=== PATIENT | female | born 1985 | race Two or more races ===

== ENCOUNTER 2024-05-11 09:04 | Outpatient (REF) | payer SELFPAY ==
[2024-05-11 11:38] LABS: MANUAL DIFF FLAG NO
[2024-05-11 11:39] LABS: Basophils Percent Auto 0.3 % (0-2); Eosinophils Absolute Auto 0.1 X10*3/uL (0.0-0.4); Eosinophils Percent Auto 0.8 % (0-4); Hematocrit 39.1 % (37.0-47.0); Hemoglobin 13.7 g/dl (12.0-16.0); Imm Gran Abs Auto 0.08 X10*3/uL (0.00-0.03); Imm Gran Pct Auto 1.2 % (0.0-0.4); Lymphocytes Absolute Auto 2.5 X10*3/uL (1.2-4.9); Lymphocytes Percent Auto 37.4 % (20-40); Mean Corpuscular Hemoglobin 28.9 pg (27.0-33.0); Mean Corpuscular Volume 82.5 fL (80.0-98.0); Mean Platelet Volume 10.8 fL (9.4-12.3); Monocytes Absolute Auto 0.4 X10*3/uL (0.1-1.2); Neutrophils Absolute Auto 3.6 x10*3/uL (2.0-8.3); Neutrophils Percent Auto 54.3 % (45-73); Platelet Count 287 X10*3/uL (160-400); Red Blood Count 4.74 X10*6/uL (4.20-5.50); Red Cell Distribution Width 11.9 % (11.0-16.0); White Blood Count 6.6 X10*3/uL (4.8-10.8)
[2024-05-11 11:54] LABS: Prothrombin Time 11.1 SEC (10.9-12.4)
[2024-05-11 12:03] LABS: Alanine Aminotransferase 50 U/L (0-31); Albumin Level 3.9 g/dL (3.5-5.0); Alkaline Phosphatase 64 U/L (39-117); Anion Gap 9 (12-20); Aspartate Amino Transferase 32 U/L (5-31); Bilirubin Total 0.4 mg/dL (0.0-1.0); Blood Urea Nitrogen 10 mg/dL (9-16); Calcium 8.9 mg/dL (8.4-10.2); Carbon Dioxide 25 mmol/L (22-29); Chloride 112 mmol/L (96-108); Cholesterol 145 mg/dL (<200); Estimated Glomerular Filt Rate > 60; Glucose Random 82 mg/dL (60-115); HDL Cholesterol 35 mg/dL (>40); LDL Cholesterol Calculated 84 mg/dL (<100); Potassium 3.5 mmol/L (3.3-5.1); Sodium 142 mmol/L (135-145); Total Protein 6.7 g/dL (6.5-8.0); Triglycerides 131 mg/dL (<150)
[2024-05-11 12:12] LABS: HIV AB/AG Nonreactive (Nonreactive); HIV Num 1 0.05 S/CO (0.00-0.99); ~HepC Num1 0.12 S/CO (0.00-0.79); ~Hepatitis C Antibody Nonreactive (Nonreactive)
[2024-05-11 12:25] LABS: Vitamin D 25-OH Total 84.2 ng/mL (>30)
== END 2024-05-11 09:05 | disposition home or self-care (01) ==
LOC: HO.HHCL 09:04
PROVIDERS: Visit Provider Nurse Practitioner Primary Care
DX: Z00.00 Encounter for general adult medical examination without abnormal findings (principal); Z11.3 Encounter for screening for infections with a predominantly sexual mode of transmission; Z13.220 Encounter for screening for lipoid disorders; R79.89 Other specified abnormal findings of blood chemistry; Z79.01 Long term (current) use of anticoagulants
CPT/HCPCS: 36415; 80053; 80061; 82306; 85025; 85610; 86803; 87389

== ENCOUNTER 2024-09-10 16:46 | Outpatient (REF) | payer MEDICAID, SELFPAY ==
--- OUTSIDE RECORDS SUMMARY | 2024-09-10 16:49 | XMS_ITS | Clinical Summary ---
Author Organization [facility] Address [address] [facility] 7t [place] [address] Care Team Providers Care Ssds Mk 2 Advanced Operator Name Role Phone Yaneli Herring Primary Care Provider [phone] Allergies No known active allergies Medications sertraline (Zoloft) 100 MG tabletIndication s:Episode of recurrent major depressive disorder, unspecified depression episode severity (CMS/HCC) Take 1 tablet (100 mg) by mouth Once per day. 90 tablet 1 05/08/2024 Active Active Problems Problem Noted Date Diagnosed Date Mixed hyperlipidemia 06/04/2024 Recurrent major depressive episodes, moderate Preop examination 06/04/2024 Assessment & Plan (06/04/2024 12:15 PM EST): Patient is acceptable risk for surgery. Ok to proceed to operating room without further risk stratification. Low vitamin D level 10/08/2022 Encounters Date Type Department Care Team Description 09/10/2024 10:00 AM EDT Procedure Visit [facility] MEDICINE [address] [place] [address] Yaneli Herring ANP Screening for cervical cancer (Primary Dx); Screening mammogram for breast cancer; Routine screening for STI (sexually transmitted infection); Encounter for gynecological examination without abnormal finding 09/10/2024 Travel 09/09/2024 Telephone [facility] MEDICINE [address] [place] [address] Yaneli Herring ANP Chart Prep 07/29/2024 Population Health Risk Score [facility] (C[facility]) Department [address] [phone] Provider, Population Health Generic from Last 3 Months Immunizations Name Administration Dates Next Due Influenza Injectable Quadriv alant Preservative Free IIV4 MDCK 01/13/2022 Influenza injectable quadrivalent preservative f ree 01/21/2023,04/21/2021 Tdap 12/25/2023 Social History Tobacco Use Types Packs/Day Years Used Date Smoking Tobacco: Never Smokeless Tobacco: Never Tobacco Cessation:Counseling Given: Not Answered Alcohol Use Standard Drinks/Week Comments Never 0 (1 standard drink = 0.6 oz pur e alcohol) Depression Answer Date Recorded Patient Health Questionnaire-9 Score 0 06/04/2024 Patient Health Questionnaire-9 Score 0 06/04/2024 Last PHQ-9: Questionnaire Data Not on file 0 06/04/2024 Housing Stability Answer Date Recorded What is your housing situation today? I have rohini patel 06/04/[address] you li ve. Do you have problems with any of the following? None of the above 06/04/2024 Food Insecurity Answer Date Recorded Within the past 12 months, y ou worried that your food would run out before you got money to buy more: Never True 06/04/2024 Within the past 12 months,th e food you bought just didn't last and you didn't have enough money to get more: Never True Transportation Answer Date Recorded In the past 12 months, has l ack of transportation kept you from medical appts, meetings, work or from getting things needed for daily living? No 06/04/2024 Utilities Answer Date Recorded In the past 12 months, has t he electric, gas, oil or water company threatened to shut off services in your home? No 06/04/2024 Depression Answer Date Recorded Patient Health Questionnaire-2 Score 0 06/04/2024 Internet Access Answer Date Recorded Internet Access Q1 Yes 06/04/2024 Internet Access Q2 Not on file 06/04/2024 Comments Unknown Sex and Gender Information Value Date Recorded Sex Assigned at Female 03/05/2022 10:38 AM EDT Legal Sex Female 10:38 AM EDT Gender Identity Female 03/05/2022 10:38 AM EDT Sexual Orientation Choose not to disclose 2021 10:38 AM EDT Last Filed Vital Signs Vital Sign Reading Time Taken Comments Blood Pressure 120/70 09/10/2024 10:11 AM EDT Pulse 72 09/10/2024 10:11 AM EDT Temperature 36.1 ??C (97 ??F) 06/04/2024 10:36 AM EST Respiratory Rate 20 09/10/2024 10:11 AM EDT Oxygen Saturation 98% 06/04/2024 10:36 AM EST Inhaled Oxygen Concentration - - Weight 75.3 kg (166 lb) 09/10/2024 10:11 AM EDT Height 162.6 cm (5' 4 ) 09/10/2024 10:11 AM EDT Body Mass Index 28.49 09/10/2024 10:11 AM EDT Plan of Treatment Health Maintenance Due Date Last Done Comments Family Planning (PISQ) 1999 Hepatitis B Vaccines (1 of 3 - 19+ 3-dose series) 2003 Pap Smear 2005 Cervical Cancer Screening 2014 HPV/Cotest 2014 COVID-19 Vaccine (2 - 2023-2 5 season) 2024 04/21/2021 Influenza Vaccine (#1) 2024 , 01/13/2022, 04/21/2021 Mammogram 2024 Alcohol/Substance Use Screening 06/04/2025 06/04/2024 Depression Screening 06/04/2025 06/04/2024, 06/04/2024 SDOH Screening 06/04/2025 06/04/2024 Tobacco Screening 09/10/2025 09/10/2024 DTaP/Tdap/Td Vaccines (2 - T d or Tdap) 12/24/2033 12/25/2023 Zoster Vaccines (1 of 2) 2034 RSV Patients and Patients Aged 60 years or older (1 - 1-dose 75+ series) 2059 HIV Screening Completed 05/11/2024, 10/05/2022, 11/25/2020 Hepatitis C Screening Completed 05/11/2024 , 11/25/2020 HIB Vaccines Aged Out No longer eligi ble based on patient's age to complete this topic HPV Vaccines Aged Out No longer eligi ble based on patient's age to complete this topic Hepatitis A Vaccines Aged Out No long er eligible based on patient's age to complete this topic IPV Vaccines Aged Out No longer eligi ble based on patient's age to complete this topic Meningococcal Vaccine Aged Out No jameel tamime eligible based on patient's age to complete this topic Pneumococcal Vaccine: Pediatrics (0 to 5 Years) and At-Risk Patients (6 to 49) Years) Aged Out No longer eligible b ased on patient's age to complete this topic RSV under 20 months Aged Out No longe r eligible based on patient's age to complete this topic Rotavirus Vaccines Aged Out No longer eligible based on patient's age to complete this topic Procedures Procedure Name Priority Date/Time Associated Diagnosis Comments HEPATITIS C AB W/REFL TO HCV RNA, QN, PCR Routine 05/11/2024 9:07 AM EST Routine screening for STI (sexually transmitted infection) HIV 1/2 ANTIGEN/ANTIBODY, FOURTH GENERATION W/RFL Routine 05/11/2024 9:07 AM EST Routine screening for STI (sexually transmitted infection) from Last 3 Months or Most Recently Relevant to Health Maintenance Results * Hepatitis C Antibody with Reflex to HCV, RNA, Quantitative, Real-Time PCR (05/11/2024 9:07 AM EST) Hepatitis C Antibody Nonreactive Nonreactive [facility] Comment:Antibodies to HCV no t detected; does not exclude early acuteHCV infection. Blood Venous blood specimen / Unknown 05/11/2024 9:07 AM EST 05/11/2024 11:34 AM EST [facility] LAB BLOOD ORDERABLES Final Resul t [facility] [address] [place] [phone] * HIV-1/2 Antigen and Antibodies, Fourth Generation, with Reflexes (05/11/2024 9:07 AM EST) HIV AB/AG Nonreactive Nonreactive [facility] Comment:HIV-1 p24 Ag and/or HIV-1/HIV-2 Ab not detected.A test result that is nonreactive does not exclude thepossibility of exposure to or infection with HIV-1 and/orHIV-2. Nonreactive results in this assay for individualswith prior exposure to HIV-1 and/or HIV-2 may be due toantigen and antibody levels that are below the limit ofdetection of this assay.The LLUSTREnity HIV Ag/Ab Combo assay result andsupplemental assay results should be interpreted inconjunction with the patient's clinical presentation,history and other laboratory results. If the results areinconsistent with clinical evidence, additional testing issuggested to confirm the result. Blood Venous blood specimen / Unknown 05/11/2024 9:07 AM EST 05/11/2024 11:34 AM EST Yaneli SNIDER LAB BLOOD ORDERABLES Final Resul t [facility] [address] [place] [phone] from Last 3 Months or Most Recently Relevant to Health Maintenance Insurance [facility] STANDARD Care Teams Ssds Mk 2 Advanced Operator Relationship Specialty Start Date End Date Yaneli Herring ANP [address] [place] [address] PCP - General Family Medicine 11/21/22
--- OUTSIDE RECORDS SUMMARY | 2024-09-10 16:49 | XMS_ITS | Encounter Summary ---
Author Organization [employer] Address [address] [facility] 7t [place] [address] Care Team Providers Care Watch Technician Name Role Phone Yaneli Herring Primary Care Provider [phone] Reason for Referral * Imaging (Routine) - Closed Specialty Diagnoses / Procedures Referred By Abril gant Referred To Contact Radiology Diagnoses Screening mammogram for breast cancer Procedures BI Mammogram Screening Bilateral Yaneli Herring ANP [address] [place] [address] Phone: tel: fax: [facility] Referral ID Status Reason Start Date Expiration Date Visits Re quested Visits Authorized [id number] Closed 09/10/2024 09/10/2025 1 1 Reason for Visit * Reason Comments Gynecologic Exam Encounter Details Date Type Department Care Team (Latest Contact Info) Description 09/10/2024 10:00 AM EDT Procedure Visit [facility] MEDICINE [address] [place], [place] [phone] Yaneli Herring ANP [address] [place], [place] [phone] Screening for cervical cancer (Primary Dx); Screening mammogram for breast cancer; Routine screening for STI (sexually transmitted infection); Encounter for gynecological examination without abnormal finding Social History Tobacco Use Types Packs/Day Years Used Date Smoking Tobacco: Never Smokeless Tobacco: Never Alcohol Use Standard Drinks/Week Comments Never 0 [...] not to disclose 2021 10:38 AM EDT documented as of this encounter Last Filed Vital Signs Vital Sign Reading Time Taken Comments Blood Pressure 120/70 09/10/2024 10:11 AM EDT Pulse 72 09/10/2024 10:11 AM EDT Temperature - - Respiratory Rate 20 09/10/2024 10:11 AM EDT Oxygen Saturation - - Inhaled Oxygen Concentration - - Weight 75.3 kg (166 lb) 09/10/2024 10:11 AM EDT Height 162.6 cm (5' 4 ) 09/10/2024 10:11 AM EDT Body Mass Index 28.49 09/10/2024 10:11 AM EDT documented in this encounter Plan of Treatment Scheduled Orders Name Type Priority Associated Diagnoses Orde r Schedule BI Mammogram Screening Bilateral Imaging Routine Screening mammogram for breast cancer Expected: 09/10/2024, Expires: 09/11/2025 STI testing add on (NG, CT, Trich) Pathology and Cytology Routine Routine screening for STI (sexually transmitted infection) Ordered: 09/10/2024 Pap Smear Pathology and Cytology Routine Screening for cervical cancer Ordered: 09/10/2024 documented as of this encounter Visit Diagnoses Diagnosis Screening for cervical cancer- Primary Screening for malignant neoplasm of the cervix Screening mammogram for breast cancer Routine screening for STI (sexually transmitted infection) Screening examination for venereal disease Encounter for gynecological examination without abnormal finding documented in this encounter Additional Health Concerns Assessment Noted Time PHQ-9 Depression Total Score: 0 06/04/19 25 10:39 AM EST documented as of this encounter Care Teams Watch Technician Relationship Specialty Start Date End Date Yaneli Herring ANP [address] [place] [phone] PCP - General Family Medicine 11/21/22 documented as of this encounter
--- OUTSIDE RECORDS SUMMARY | 2024-09-10 16:49 | XMS_ITS | Encounter Summary ---
Author Organization [employer] Address [address] [facility] 7t [place] [address] Care Team Providers Care Water/Wastewater Project Engineer Name Role Phone Yaneli Herring Primary Care Provider [phone] Reason for Visit * Reason Onset Date Comments Chart Prep 09/09/2024 Encounter Details Date Type Department Care Team (Late st Contact Info) Description 09/09/2024 Telephone [facility] MEDICINE [address] [place] [address] Yaneli Herring ANP [address] [place] [address] Chart Prep Social History Tobacco Use Types Packs/Day Years [...] AM EDT documented as of this encounter Miscellaneous Notes * Telephone Encounter - Cata Costa [place] - 09/09/2024 1:53 PM EDT Chart Prep Labs: done Images: done Vaccines due: Covid Due, Hep B Due, and Flu Due Referrals: Not Applicable Screenings: PAP and Mammogram Overdue care gaps: GAD7 and Disability documented in this encounter Plan of Treatment Not on file documented as of this encounter Visit Diagnoses Not on filedocumented in this encounter Additional Health Concerns Assessment Noted Time PHQ-9 Depression Total Score: 0 06/04/19 25 10:39 AM EST documented as of this encounter Care Teams Water/Wastewater Project Engineer Relationship Specialty Start Date End Date Yaneli Herring ANP [address] [place] [id number] PCP - General Family Medicine 11/21/22 documented as of this encounter
--- OUTSIDE RECORDS SUMMARY | 2024-09-10 16:49 | XMS_ITS ---
Author Name [facility] Organization Unknown Encounters Encounter Type Encounter Reason Primary Diagnosis Location Date Ambulatory Excessive and redundant skin and subcutaneous tissue Excessive and redundant skin and subcutaneous tissue [facility] 06/15/2024 Care Team Organization Name Specialty Phone Email Start Date End Da te [facility] 07/15/2024 07/26/2024 [facility] 02/04/2024
--- OUTSIDE RECORDS SUMMARY | 2024-09-10 16:49 | XMS_ITS | Encounter Summary ---
Author Organization [employer] Address [address] [facility] 7t [place] [address] Care Team Providers Care Tread Cutter Name Role Phone Rik Esquivel MD Primary Care Provide r Yaneli Herring Primary Care Provider [phone] Reason for Visit * Reason Onset Date Comments Triage 10/02/2022 transfer request 10/02/2022 Encounter Details Date Type Department Care Team ([facility] st Contact Info) Description 10/02/2022 Telephone [facility] MEDICINE [address] [place], [place] [phone] Rik Esquivel MD [address] [place], [place] [phone] Triage; transfer request Social History Tobacco Use Types Packs/Day Years Used Date Smoking Tobacco: Never Smokeless Tobacco: Never Alcohol Use Standard Drinks/Week Comments Never 0 (1 standard drink = 0.6 oz pur e alcohol) Comments Unknown Sex and Gender Information Value Date Recorded Sex Assigned at Female 03/05/2022 10:38 AM EDT Legal Sex Female 10:38 AM EDT Gender Identity Female 03/05/2022 10:38 AM EDT Sexual Orientation Choose not to disclose 2021 10:38 AM EDT COVID-19 Exposure Response Date Recorded In the last 10 days, have yo u been in contact with someone who was confirmed or suspected to have Coronavirus/COVID-19? No / Unsure 10/05/2022 3:02 PM EDT documented as of this encounter Miscellaneous Notes * Telephone Encounter - Moy Mcmahon RN - 10/11/2022 2:10 PM EDT RN called patient in regards to request to switch. Patient reports she is just looking for a provider with more availability as her current PCP only works a couple days per week. RN informed patient that transfer request approved and message will be sent to assistant front office manager who will contact her to book a TP appointment. Patient informed any med refills and requests will be completed by current PCP until she is seen by the new provider. Patient verbalized understanding and agrees with plan. * Telephone Encounter - Tiesha Santillan RN - 10/02/2022 10:10 AM EDT called pt to triage, spoke to pt. pt states about 1 month duration of right ear pain. pt seen twicein the walk in [facility] but nothing is helping. pt was referred to ENT but knows that will take a while. pt denies fevers, other illness symptoms. pt also reports buzzing sensation in the right ear as well. advised no available appt with PCP and given appt with Eden Herring Saturday at 3:15 for recheck. advised home care: rest, warm compresses, OTC pain reliever as needed, and call back if worsening or new concerns. pt understands and agrees with plan. insurance verified. Pt requesting also to change PCP and will task to team nurses to follow up as needed. Protocol Used: Earache (Adult) Protocol-Based Disposition: See in Office or Video Visit Today or Tomorrow Positive Triage Questions: * All other earaches (Exceptions: Earache lasting < 1 hour, and earache from air travel.) * Patient wants to be seen * All higher-acuity triage questions were negative Care Advice Discussed: * Pain Medicines * Pain Medicines - Extra Notes and Warnings * Apply Cold to the Area for Pain * Reasons To Call Back - Earache last more than 1 hour - High fever, severe headache, or stiff neck occurs - You become worse * Telephone Encounter - Ro Crespo - 10/02/2022 8:49 AM EDT Symptom: Earache (right) Outcome: Schedule a same-day appointment or talk to a nurse or provider today Reason: Caller denied all higher acuity questions The caller accepted this outcome Patient is requesting an appt with PCP due to coming to the [facility] twice with the same symptoms. documented in this encounter Plan of Treatment Not on file documented as of this encounter Visit Diagnoses Not on filedocumented in this encounter Care Teams Tread Cutter Relationship Specialty Start Date End Date Rik Esquivel MD [address] [place] [address] PCP - General Internal Medicine 02/16/21 11/20/22 Yaneli Herring ANP [address] [place] [phone] PCP - General Family Medicine 11/21/22 documented as of this encounter
--- OUTSIDE RECORDS SUMMARY | 2024-09-10 16:49 | XMS_ITS | Clinical Summary ---
Author Organization [facility] Address [address] [place] [address] Care Team Providers Care X Ray Examiner Of Aircraft Name Role Phone Unavailable Primary Care Provider Unavailabl e Allergies No known active allergies Medications sertraline (ZOLOFT) 100 MG tablet Take 1 tablet (100 mg total) by mouth every morning. Active cholecalciferol (CHOLECALCIFEROL ) 25 MCG (1000 UT) tablet Take 1 tablet (1,000 Units total) by mouth daily. Active Encounters Date Type Department Care Team Description 06/15/2024 12:05 PM EST Anesthesia Event [address] [phone] Kennedy Shah DO Gupta, Nitish, MD 06/15/2024 12:00 PM EST - 06/15/2024 3:15 PM EST Surgery [address] [phone] Cosme Sanders MD ABDOMINOPLASTY 06/15/2024 10:53 AM EST - 06/15/2024 4:37 PM EST Hospital Encounter [address] [phone] Cosme Sanders MD Discharge Disposition: Home or Self Care 06/15/2024 Travel from Last 3 Months Social History Tobacco Use Types Packs/Day Years Used Date Smoking Tobacco: Never Smokeless Tobacco: Never Tobacco Cessation:Counseling Given: Not Answered Alcohol Use Standard Drinks/Week Comments Not Currently 0 (1 standard drink = 0.6 oz pur e alcohol) AUDIT-C Answer Date Recorded Q1: How often do you have a drink containing alcohol? Never 06/02/2024 Q2: How many drinks containi ng alcohol do you have on a typical day when you are drinking? Patient does not drink Q3: How often do you have si x or more drinks on one occasion? Never 06/02/2024 Comments No Sex and Gender Information Value Date Recorded Sex Assigned at Female 06/10/2024 1:14 PM EST Legal Sex Female 3:17 PM EDT Gender Identity Female 06/10/2024 1:14 PM EST Sexual Orientation Heterosexual (straight) 06/10 1:14 PM EST Last Filed Vital Signs Vital Sign Reading Time Taken Comments Blood Pressure 112/58 06/15/2024 4:00 PM EST Pulse 72 06/15/2024 4:00 PM EST Temperature 36.7 ??C (98.1 ??F) 06/15/2024 3:10 PM ES T Respiratory Rate 16 06/15/2024 4:00 PM EST Oxygen Saturation 99% 06/15/2024 4:00 PM EST Inhaled Oxygen Concentration - - Weight 74.4 kg (164 lb) 06/02/2024 8:57 AM EST Height 165.1 cm (5' 5 ) 06/02/2024 8:57 AM EST Body Mass Index 27.29 06/02/2024 8:57 AM EST Plan of Treatment Health Maintenance Due Date Last Done Comments Hepatitis C Virus Screening 1984 DTaP/Tdap/Td Vaccines (1 - Tdap) 2003 Hepatitis B Vaccines (1 of 3 - 19+ 3-dose series) 2003 Pap Smear (Ages 21-65) 2005 COVID-19 Vaccine (2023-2 5 season) 2024 Mammogram 2024 Influenza Vaccine 12/04/2024 HIV Screening Completed 05/11/2024 HPV Vaccines Aged Out No longer eligi ble based on patient's age to complete this topic Pneumococcal Vaccine: Pediat jose antonio (0-5 Years) and At-Risk Patients (6 to 49 Years) Aged Out No longer eligible b ased on patient's age to complete this topic Procedures Procedure Name Priority Date/Time Associated Diagnosis Comments ANES INTUBATION Routine 06/15/2024 12:25 PM EST ABDOMINOPLASTY 06/15/2024 12:05 PM EST Excess skin of abdomen from Last 3 Months Results * ANES INTUBATION (06/15/2024 12:25 PM EST) Kennedy Guzman DO - 06/15/2024 12:25 PM EST Kennedy Shah V, DO ? 06/15/2024 12:25 PM Anesthesia Procedure Note - Elective intubation Patient Name: Yoana Felipe : 1985 Patient location: OR Procedure indications: airway protection Procedure diagnosis: Anesthesia Performed by: Anesthesiologist ? Kennedy Shah V, DO ? Chart Verification Airway: airway not difficult Preanesthetic Checklist monitors and equipment checked. Patient's pre-procedure mental status: awake The patient was sedated prior to procedure. Current level of sedation: general anesthesia Airway not difficult - NPO status: > 8 hours Procedure Details Intubation route: oral Intubation method: direct laryngoscopy ??Mac 3 Number of attempts: 1 Patient status for intubation: paralyzed and sedated Patient position: supine Preoxygenation: BVM Quality of BVM: easy Tube size: 7.0 mm Tube: standard ??- cuffed and cuff inflated Cricoid pressure not applied or not required Cord visualization: Grade I Placement confirmation method: chest rise and ETCO2 monitor Breath sounds: absent over the epigastrium ETT to lip: 21 cm Dentition: same as baseline Complications: no complications us Kennedy Villarreal DO [place] ANESTHESIA Final Result from Last 3 Months
--- OUTSIDE RECORDS SUMMARY | 2024-09-10 16:49 | XMS_ITS | Encounter Summary ---
Author Organization [employer] Address [address] [facility] 7t [place] [address] Care Team Providers Care Notched Blade Loader Name Role Phone Yaneli Herring Primary Care Provider [phone] Encounter Details Date Type Department Care Team (Latest Contact Info) Description 09/10/2024 Travel Social History Tobacco Use Types Packs/Day Years [...] AM EDT documented as of this encounter Plan of Treatment Not on file documented as of this encounter Visit Diagnoses Not on filedocumented in this encounter Additional Health Concerns Assessment Noted Time PHQ-9 Depression Total Score: 0 06/04/19 25 10:39 AM EST documented as of this encounter Care Teams Notched Blade Loader Relationship Specialty Start Date End Date Yaneli Herring ANP [address] [place] [address] PCP - General Family Medicine 11/21/22 documented as of this encounter
--- OUTSIDE RECORDS SUMMARY | 2024-09-10 16:49 | XMS_ITS | Encounter Summary ---
Author Organization [employer] Address [address] [facility] [address]t [place] [address] Care Team Providers Care Maintenance Worker Name Role Phone Rik Esquivel MD Primary Care Provide r Yaneli Herring Primary Care Provider [phone] Encounter Details Date Type Department Care Team (Late st Contact Info) Description 05/28/2022 Orders Only [facility] MED & PEDS [address] [place], [place] [phone] Michelle Cain LPN Social History Tobacco Use Types Packs/Day Years Used Date Smoking Tobacco: Never Assessed Comments Unknown Sex and Gender Information Value [...] on filedocumented in this encounter Care Teams Maintenance Worker Relationship Specialty Start Date End Date Rik Esquivel MD [address] [place] [phone] PCP - General Internal Medicine 02/16/21 11/20/22 Yaneli Herring ANP [address] [place] [id number] PCP - General Family Medicine 11/21/22 documented as of this encounter
[2024-09-12 13:58] LABS: C. trachomatis RNA TMA NOT DETECTED (NOT DETECTED); N. gonorrhoeae RNA TMA NOT DETECTED (NOT DETECTED); Trichomonas (NAAT) NOT DETECTED (NOT DETECTED)
[2024-09-16 11:58] LABS: HPV Genotype 16 Negative (Negative); HPV Genotype 18 Negative (Negative); HPV High Risk Negative (Negative)
== END 2024-09-10 16:47 | disposition home or self-care (01) ==
LOC: HO.HHCLNP 16:46
PROVIDERS: Visit Provider Nurse Practitioner Primary Care
DX: Z12.4 Encounter for screening for malignant neoplasm of cervix (principal); Z11.3 Encounter for screening for infections with a predominantly sexual mode of transmission; Z11.51 Encounter for screening for human papillomavirus (HPV)
CPT/HCPCS: 87491; 87591; 87626; 87661; 88175

== ENCOUNTER 2025-04-13 10:25 | Outpatient (REF) | payer MEDICAID, SELFPAY ==
[2025-04-13 11:03] LABS: MANUAL DIFF FLAG NO
[2025-04-13 11:18] LABS: Hematocrit 41.4 % (37.0-47.0); Hemoglobin 14.6 g/dl (12.0-16.0); Imm Gran Abs Auto 0.02 X10*3/uL (0.00-0.03); Imm Gran Pct Auto 0.3 % (0.0-0.4); Lymphocytes Absolute Auto 2.4 X10*3/uL (1.2-4.9); Mean Corpuscular HGB Conc 35.3 g/dl (31.0-35.0); Mean Corpuscular Hemoglobin 29.6 pg (27.0-33.0); Mean Corpuscular Volume 84.0 fL (80.0-98.0); NRBC Abs Auto 0.000 X10*3/uL (0.0-0.012); NRBC Pct Auto 0.0 /100WBC (0.0-0.2); Platelet Count 263 X10*3/uL (160-400); Red Blood Count 4.93 X10*6/uL (4.20-5.50); White Blood Count 5.8 X10*3/uL (4.8-10.8)
[2025-04-13 14:27] LABS: Alanine Aminotransferase 16 U/L (0-31); Albumin Level 4.4 g/dL (3.5-5.0); Alkaline Phosphatase 70 U/L (39-117); Aspartate Amino Transferase 28 U/L (5-31); Total Protein 7.4 g/dL (6.5-8.0)
[2025-04-13 15:19] LABS: CT PCR NOT DETECTED (Not Detect.); NG PCR NOT DETECTED (Not Detect.)
[2025-04-14 05:53] LABS: HBS Num1 190.30 mIU/mL (0-7.99); HBc Num1 0.07 S/CO (0.00-0.79); HBsAGNum1 0.40 S/CO (0.00-0.99); Hepatitis B Surface Antigen Negative (Negative); ~HepC Num1 0.11 S/CO (0.00-0.79); ~Hepatitis B Surface Antibody REACTIVE (Nonreactive); ~Hepatitis C Antibody Nonreactive (Nonreactive)
[2025-04-16 02:43] LABS: C. trachomatis RNA TMA NOT DETECTED (NOT DETECTED); N. gonorrhoeae RNA TMA NOT DETECTED (NOT DETECTED)
== END 2025-04-13 10:26 | disposition home or self-care (01) ==
LOC: HO.HHCL 10:25
PROVIDERS: PCP Nurse Practitioner Primary Care; Visit Provider Nurse Practitioner Primary Care
DX: Z00.00 Encounter for general adult medical examination without abnormal findings (principal); Z11.59 Encounter for screening for other viral diseases; Z11.3 Encounter for screening for infections with a predominantly sexual mode of transmission; R74.01 Elevation of levels of liver transaminase levels; Z20.2 Contact with and (suspected) exposure to infections with a predominantly sexual mode of transmission
CPT/HCPCS: 36415; 80076; 85025; 86592; 86704; 86706; 86803; 87340; 87491; 87591; 87661